=== PATIENT | male | born 1955 | race Caucasian/White ===

== ENCOUNTER 2022-06-04 08:43 | Inpatient (IN) ==
[2022-06-04] MEDS ORDERED: MoRPHine SULFATE 4 MG/ML 1 ML CARP\\VIAL IV STA (09:17)
[2022-06-04] MEDS ORDERED: MoRPHine SULFATE 4 MG/ML 1 ML CARP\\VIAL IV PRN (09:17)
[2022-06-04] MEDS ORDERED: SODIUM CHLORIDE 0.9% 500 ML IV ONE (09:17)
[2022-06-04 09:58] LABS: Basophils # (auto) 0.05 K/uL (0-0.2); Basophils % (auto) 0.7 %; Eosinophils # (auto) 0.13 K/uL (0-0.50); Eosinophils % (auto) 1.8 %; Hematocrit (blood only) 41.9 % (42.0-52.0); Hemoglobin 14.3 g/dl (14.0-18.0); Immature Granulocytes # (auto) 0.01 K/uL (0.01-0.20); Immature Granulocytes % (auto) 0.1 %; Lymphocytes # (auto) 1.78 K/uL (1.2-3.4); Lymphocytes % (auto) 24.3 %; Mean Corpuscular Hemoglobin 31.7 pg (25.0-34.0); Mean Corpuscular Hgb Conc 34.1 g/dL (32.0-36.0); Mean Corpuscular Volume 92.9 fL (80.0-100.0); Mean Platelet Volume 8.8 fL (9.4-12.4); Monocytes # (auto) 0.84 K/uL (0.11-0.59); Monocytes % (auto) 11.5 %; Neutrophils # (auto) 4.52 K/uL (1.40-6.50); Neutrophils % (auto) 61.6 %; Platelet Count 448 K/uL (130-400); RDW Coefficient of Variation 12.7 % (11.5-14.5); RDW Standard Deviation 43.4 fL (36.4-46.3); Red Blood Count 4.51 M/uL (4.70-6.10); White Blood Count 7.33 K/ul (4.8-10.8)
--- NOTE | 2022-06-04 09:58 | Emergency Department Note ---
ED Provider Note History of Present Illness Chief Complaint: Back Injury/Pain Stated Complaint: BAD BACK PAIN Time Seen by Provider: 06/04/22 08:52 66-year-old male who presents to the emergency department for evaluation of intractable lower back pain. The patient reports that he follows with Dr. Sanchez, and is scheduled for surgery tomorrow. The patient reports that he has had his surgery rescheduled multiple times because of insurance issues. He has already had his premedical and cardiology clearance for the procedure. The pat ient reports that he has had multiple outpatient interventions without improvement of his condition, and presents for further pain management and for consultation with Dr. Sanchez. The patient rates his discomfort a 10 out of 10. The patient denies any bladder or bowel incontinence. He also has not had any recent fevers, upper respiratory symptoms, chest pain or shortness of breath. Home Medications Medication Instructions Recorded Confirmed Type acetaminophen 500 mg tablet 1,000 mg PO Q6H PRN Pain 04/29/22 04/29/22 History aspirin 81 mg tablet,delayed 81 mg PO QAM 04/29/22 04/29/22 History release atorvastatin 20 mg tablet 20 mg PO HS 04/29/22 04/29/22 History baclofen 10 mg tablet 10 mg PO TID PRN muscle spasms 04/29/22 04/29/22 History cholecalciferol (vitamin D3) 125 125 mcg PO QAM 04/29/22 04/29/22 History mcg (5,000 unit) tablet (Vitamin D3) duloxetine 60 mg capsule,delayed 60 mg PO QAM 04/29/22 04/29/22 History release folic acid 1 mg tablet 1 mg PO QA 04/29/22 04/29/22 History hydroxychloroquine 200 mg tablet 400 mg PO HS 04/29/22 04/29/22 History meloxicam 7.5 mg tablet 15 mg PO QAM 04/29/22 04/29/22 History methotrexate sodium 2.5 mg tablet 20 mg PO UD 04/29/22 04/29/22 History multivitamin 1 tab PO QAM 04/29/22 04/29/22 History omeprazole 20 mg tablet,delayed 20 mg PO QAM 04/29/22 04/29/22 History release tramadol 50 mg tablet 50 mg PO Q6H PRN Pain 04/29/22 04/29/22 History Allergies Allergy/AdvReac Type Severity Reaction Status Date / Time cat dander Allergy Intermediate "HACKING Verified 04/29/22 09:40 COUGH" grass pollen-perennial rye, Allergy Intermediate "HACKING Verified 04/29/22 09:40 standar COUGH" Past Med/Surg History Medical History Arthritis Reason for duloxetine CAD (coronary artery disease) Nonobstructive per 2010 cath per records GERD (gastroesophageal reflux disease) Well controlled and stable History of chronic cough related to gerd; f/u dr mcarthur, lung specialist [facility] Hx of duodenal ulcer duodenal erosion, years ago, now resolved Hyperlipidemia [facility]; currently following with [facility] Rheumatoid arthritis Follows with rheum - stable Surgical History History of cardiac cath 2009, [facility], no stents History of carpal tunnel surgery of right wrist History of esophagogastroduodenoscopy (EGD) w/dilatation History of surgery Trigger finger release History of total right knee replacement Hx of colonoscopy Hx of nasal septoplasty Hx of toe surgery lt great toe-hallux rigidus sx Hx of umbilical hernia repair Family History Father Stroke Social History Smoking Status: Former smoker Second Hand Exposure: No; Do You Dip or Chew Tobacco: No; Tobacco Cessation Education Requested by Patient: No Hx Alcohol Use: No Hx Substance Use: No Preferred Language: Frisian Communication Ability: Effective Nursing Home Admissions Director Required: No Beliefs That Will Affect Care: None Current Living Situation: Family Current Living Situation Comment: 2 story house Feels Safe at Home: Yes Safety Concerns: Feels Safe At This Time Assistive Devices: Glasses Physical Exam Vital Signs Vital Signs - 24 hr 06/04/22 08:44 06/04/22 10:00 Temperature 36.8 C Temperature Source Temporal Artery Scan Pulse Rate 112 H Pulse Rate [Right Finger] 89 Pulse Rhythm [Right Finger] Regular Pulse Strength [Right Finger] Normal Respiratory Rate 18 18 Respiratory Effort / Characteristics Non-Labored Respiratory Depth Normal Respiratory Pattern Regular Blood Pressure 149/82 H Blood Pressure [Right Arm] 141/90 H Blood Pressure Mean 104 Blood Pressure Mean [Right Arm] 107 Blood Pressure Position [Right Arm] Lying Pulse Oximetry 98 94 Oxygen Delivery Method Room Air Room Air Sepsis Recent Fever Within 48 Hours No Sepsis New/Unexplained Change in Mental Status No Sepsis Action Taken by Nursing No Action Required CONSTITUTIONAL: Healthy and well nourished. Patient appears in moderate discomfort, and is unable to sit for long periods of time. HEENT: No scleral icterus or conjunctival injection/pallor. NECK: Full active range of motion without discomfort. LYMPHATICS: No cervical chain adenopathy. RESPIRATORY: Clear to auscultation bilaterally with no wheezing, crackles, rhonchi or stridor. CARDIOVASCULAR: Regular rate and rhythm with no murmurs, rubs or gallops. GASTROINTESTINAL: Bowel sounds present in all quadrants. Abdomen is soft and nontender to palpation without rigidity, guarding or rebound. MUSCULOSKELETAL: Examination shows generalized tenderness to palpation throughout the lumbar spine. No palpable muscle spasm. INTEGUMENTARY: No rash or other significant dermatologic conditions noted. HEMATOLOGIC: No ecchymosis or petechiae. PSYCHIATRIC: Positive affect. NEUROLOGIC: No focal neurologic deficits noted. Lower extremities are sensory intact. Course Course Patient history and physical exam were performed. Nurses notes were reviewed. I did review prior medical records, including Dr. Sanchez's office note from 04/16/2022, indicating that the patient was a candidate for surgical inter vention since he has essentially failed all possible outpatient interventions and treatment options. I also reviewed the patient's MRI, showing severe degenerative disc disease L3-4 and L4-5. There is also severe foraminal stenosis L3-4 bilaterally. The patient has L3-4 severe left-sided lateral recess stenosis, moderate central canal stenosis and severe central and lateral recess stenosis bilaterally at L4-5. Dr. Sanchez does make mention in his note of L5-S1 severe central stenosis possible arachnoiditis as well as severe lateral recess stenosis, left worse than right. The patient has been dealing with intractable pain, which is now significantly affecting his activities of daily living. In anticipation that Dr. Sanchez would likely admit the patient for operative management, IV access was established, and basic labs were drawn, reviewed and grossly normal. COVID-19 test was negat zackary. The patient was hydrated with normal saline, and administered IV morphine and Zofran for pain. The case was discussed with Dr. Jairo, ED physician, as well as Dr. Sanchez, who will admit the patient for further surgical management. Please see his dictation for further treatment and final disposition. Administered Medications Dexamethasone 8 mg/ Syringe 2 mls @ 1 mls/min IV Q8H AVANI Stop: 06/05/22 02:16 Last Admin: 06/04/22 11:28 Dose: Not Given Documented By: AP Lactated Ringer's (Lr) 1,000 mls @ 75 mls/hr IV .[id number] AVANI Stop: 07/04/22 10:14 Last Admin: 06/04/22 11:28 Dose: 75 mls/hr Documented By: AP Lorazepam (Lorazepam 2 Mg/1 Ml Vial) 0.5 mg IV Q8H PRN PRN Reason: Sedation/Anxiety Stop: 07/04/22 10:00 Last Admin: 06/04/22 12:51 Dose: 0.5 mg Documented By: AP Tramadol HCl (Tramadol Hcl 50 Mg Tablet) 50 - 100 mg PO Q4H PRN PRN Reason: Moderate-Severe pain & Pre PT Stop: 07/04/22 10:00 Last Admin: 06/04/22 12:51 Dose: 100 mg Documented By: AP Discontinued Medications Dexamethasone (Dexamethasone Sod Inj 4 Mg/Ml Vial) Confirm Administered Dose 8 mg .ROUTE .STK-MED ONE Stop: 06/04/22 11:24 Last Admin: 06/04/22 11:28 Dose: 8 mg Documented By: RK Sodium Chloride (Nss) 500 mls @ 999 mls/hr IV .Q31M ONE Stop: 06/04/22 09:47 Last Infusion: 06/04/22 10:34 Dose: 0 mls/hr Documented By: Admin: 06/04/22 09:36 Dose: 999 mls/hr Documented By: RK Morphine Sulfate (Morphine Sulfate 4 Mg/Ml 1 Ml Carp\\Vial) 4 mg IV NOW STA Stop: 06/04/22 09:18 Last Admin: 06/04/22 09:35 Dose: 4 mg Documented By: RK Morphine Sulfate (Morphine Sulfate 4 Mg/Ml 1 Ml Carp\\Vial) 4 mg IV Q1H PRN PRN Reason: Pain Stop: 06/18/22 09:16 Last Admin: 06/04/22 10:39 Dose: 4 mg Documented By: AP Medical Decision Making Medical Records Attestation: I reviewed the patient's medical records. Home Medications was personally reviewed by me Laboratory Data Attestation: I reviewed the patient's lab results. 06/04/22 09:25 06/04/22 09:25 Lab Results 06/04/22 06/04/22 06/04/22 Range/Units 09:25 09:25 09:25 WBC 7.33 (4.8-10.8) K/ul RBC 4.51 L (4.70-6.10) M/uL Hgb 14.3 (14.0-18.0) g/dl Hct 41.9 L (42.0-52.0) % MCV 92.9 (80.0-100.0) fL MCH 31.7 (25.0-34.0) pg MCHC 34.1 (32.0-36.0) g/dL RDW Std Deviation 43.4 (36.4-46.3) fL RDW Coeff of Destiny 12.7 (11.5-14.5) % Plt Count 448 H (130-400) K/uL MPV 8.8 L (9.4-12.4) fL Immature Gran % (Auto) 0.1 % Neut % (Auto) 61.6 % Lymph % (Auto) 24.3 % [place] % (Auto) 11.5 % Eos % (Auto) 1.8 % Baso % (Auto) 0.7 % Neut # (Auto) 4.52 (1.40-6.50) K/uL Lymph # (Auto) 1.78 (1.2-3.4) K/uL [place] # (Auto) 0.84 H (0.11-0.59) K/uL Eos # (Auto) 0.13 (0-0.50) K/uL Baso # (Auto) 0.05 (0-0.2) K/uL Immature Gran # (Auto) 0.01 (0.01-0.20) K/uL PT 10.2 (9.0-12.0) Seconds INR 1.0 (0.9-1.1) APTT 26.5 (21.0-31.0) Seconds PTT Ratio 1.0 Sodium 144 (136-145) mmol/L Potassium 3.7 (3.5-5.1) mmol/L Chloride 108 H (98-107) mmol/L Carbon Dioxide 28 (21-32) mmol/L Anion Gap 8 (3-11) BUN 15 (6-23) mg/dl Creatinine 0.96 (0.6-1.4) mg/dl Est Cr Clr Drug Dosing 81.5 ml/min Est GFR ( Amer) 96.4 ml/min Est GFR (Non-Af Amer) 83.2 ml/min BUN/Creatinine Ratio 15.6 (10-20) Glucose 125 H (70-99(Fasting)) mg/dl Calcium 9.7 (8.5-10.1) mg/dl Total Bilirubin 0.5 (0.2-1.0) mg/dl AST 22 (13-39) U/L ALT 29 (7-52) U/L Alkaline Phosphatase 94 (34-104) U/L Total Protein 7.7 (6.0-8.3) gm/dl Albumin 4.1 (3.4-5.0) gm/dl Globulin 3.6 (2.5-4.0) gm/dl Albumin/Globulin Ratio 1.1 (0.9-2) SARS-CoV-2, RNA, NAAT (NEGATIVE) 06/04/22 Range/Units 09:39 WBC (4.8-10.8) K/ul RBC (4.70-6.10) M/uL Hgb (14.0-18.0) g/dl Hct (42.0-52.0) % MCV (80.0-100.0) fL MCH (25.0-34.0) pg MCHC (32.0-36.0) g/dL RDW Std Deviation (36.4-46.3) fL RDW Coeff of Destiny (11.5-14.5) % Plt Count (130-400) K/uL MPV (9.4-12.4) fL Immature Gran % (Auto) % Neut % (Auto) % Lymph % (Auto) % [place] % (Auto) % Eos % (Auto) % Baso % (Auto) % Neut # (Auto) (1.40-6.50) K/uL Lymph # (Auto) (1.2-3.4) K/uL [place]ima # (Auto) (0.11-0.59) K/uL Eos # (Auto) (0-0.50) K/uL Baso # (Auto) (0-0.2) K/uL Immature Gran # (Auto) (0.01-0.20) K/uL PT (9.0-12.0) Seconds INR (0.9-1.1) APTT (21.0-31.0) Seconds PTT Ratio Sodium (136-145) mmol/L Potassium (3.5-5.1) mmol/L Chloride (98-107) mmol/L Carbon Dioxide (21-32) mmol/L Anion Gap (3-11) BUN (6-23) mg/dl Creatinine (0.6-1.4) mg/dl Est Cr Clr Drug Dosing ml/min Est GFR ( Amer) ml/min Est GFR (Non-Af Amer) ml/min BUN/Creatinine Ratio (10-20) Glucose (70-99(Fasting)) mg/dl Calcium (8.5-10.1) mg/dl Total Bilirubin (0.2-1.0) mg/dl AST (13-39) U/L ALT (7-52) U/L Alkaline Phosphatase (34-104) U/L Total Protein (6.0-8.3) gm/dl Albumin (3.4-5.0) gm/dl Globulin (2.5-4.0) gm/dl Albumin/Globulin Ratio (0.9-2) SARS-CoV-2, RNA, NAAT NEGATIVE (NEGATIVE) MDM Narrative See ED course for further details of today's visit. The patient presents to the emergency department with complaint of intractable lower back pain secondary to significant degenerative disc disease and osteoarthritic changes. Dr. Sanchez has agreed to admit the patient for further pain control and surgical management. Patient has a well-documented history of work-up and treatment for his back pain. I do not suspect other intra-abdominal, urologic or cardiopulmonary referred pain. Impression Intractable low back pain, Rheumatoid arthritis Discharge Plan Visit Data Chief Complaint: Back Injury/Pain Stated Complaint: BAD BACK PAIN ED Provider: [facility] ED Midlevel Provider: Jorge Carreon Discharge Problem: Intractable low back pain, Rheumatoid arthritis Patient Disposition: Admitted As Inpatient Discharge Instructions Interventions: ED Discharge Assessment Last Done: 06/04/22 12:41
[2022-06-04] MEDS ORDERED: PROMETHAZINE HCL 12.5 MG in SODIUM CHLORIDE 0.9% 50 ML IV PRN (10:01)
[2022-06-04] MEDS ORDERED: ONDANSETRON INJ 2 MG/ML 2 ML VIAL IV PRN (10:01)
[2022-06-04] MEDS ORDERED: HYDROmorphone INJ 1 MG/ML SYRINGE IV PRN (10:01)
[2022-06-04] MEDS ORDERED: HYDROmorphone INJ 0.5 MG/0.5 ML SYR IV PRN (10:01)
[2022-06-04] MEDS ORDERED: NALOXONE HCL 0.4 MG/1 ML VIAL/CARP IV PRN (10:01)
[2022-06-04] MEDS ORDERED: ALUMINUM/MAGNESIUM SUSP 30 ML UDC PO PRN (10:01)
[2022-06-04] MEDS ORDERED: ONDANSETRON 4 MG OD TAB PO PRN (10:01)
[2022-06-04] MEDS ORDERED: SOD PHOSPHATE/SOD BIPHOSPHATE ENEMA 132 ML BTL PR PRN (10:01)
[2022-06-04] MEDS ORDERED: traMADol HCL 50 MG TABLET PO PRN (10:01)
[2022-06-04] MEDS ORDERED: METOCLOPRAMIDE HCL INJ 5 MG/ML 2 ML VIAL IV PRN (10:01)
[2022-06-04] MEDS ORDERED: ACETAMINOPHEN 1,000 MG/100 ML VIAL IV PRN (10:01)
[2022-06-04] MEDS ORDERED: ACETAMINOPHEN 500 MG TAB PO PRN (10:01)
[2022-06-04 10:11] LABS: Albumin Globulin Ratio 1.1 (0.9-2); Albumin Level 4.1 gm/dl (3.4-5.0); BUN Creatinine Ratio 15.6 (10-20); Bilirubin,Total 0.5 mg/dl (0.2-1.0); Calcium 9.7 mg/dl (8.5-10.1); Creatinine Clr Calc Pharmacy 81.5 ml/min; Est GFR (African American) 96.4 ml/min; Est GFR (Non-African American) 83.2 ml/min; Globulin 3.6 gm/dl (2.5-4.0); Potassium 3.7 mmol/L (3.5-5.1); Total Protein 7.7 gm/dl (6.0-8.3)
[2022-06-04 10:18] LABS: Partial Thromboplastin Time 26.5 Seconds (21.0-31.0); Prothrombin Time 10.2 Seconds (9.0-12.0)
[2022-06-04] MEDS ORDERED: DEXAMETHASONE SOD INJ 4 MG/ML VIAL ONE (11:23)
[2022-06-04] MEDS: dexAMETHasone 8 MG in SYRINGE 0 ML IV SCH ×2 (11:28→19:40)
[2022-06-04] MEDS: LACTATED RINGER'S 1,000 ML IV SCH (11:28)
[2022-06-04 11:30] LABS: Basophils # (auto) 0.04 K/uL (0-0.2); Basophils % (auto) 0.6 %; Eosinophils # (auto) 0.12 K/uL (0-0.50); Eosinophils % (auto) 1.7 %; Hematocrit (blood only) 38.7 % (42.0-52.0); Hemoglobin 13.4 g/dl (14.0-18.0); Immature Granulocytes # (auto) 0.02 K/uL (0.01-0.20); Immature Granulocytes % (auto) 0.3 %; Lymphocytes # (auto) 2.06 K/uL (1.2-3.4); Lymphocytes % (auto) 28.9 %; Mean Corpuscular Hemoglobin 31.8 pg (25.0-34.0); Mean Corpuscular Hgb Conc 34.6 g/dL (32.0-36.0); Mean Corpuscular Volume 91.7 fL (80.0-100.0); Mean Platelet Volume 8.8 fL (9.4-12.4); Monocytes # (auto) 0.86 K/uL (0.11-0.59); Monocytes % (auto) 12.1 %; Neutrophils # (auto) 4.03 K/uL (1.40-6.50); Neutrophils % (auto) 56.4 %; Platelet Count 419 K/uL (130-400); RDW Coefficient of Variation 12.7 % (11.5-14.5); RDW Standard Deviation 42.4 fL (36.4-46.3); Red Blood Count 4.22 M/uL (4.70-6.10); White Blood Count 7.13 K/ul (4.8-10.8)
--- NOTE | 2022-06-04 11:56 | History & Physical Report ---
Date of Service June 04, 2022 Assessment & Plan (1) Low back pain: Plan: Case has been reviewed with Dr. Sanchez. Dr. Sanchez is admitting the patient for intractable back pain, bilateral lower extremity pain and decline of function at home. For the past 72 hours he has been homebound because of the pain. This is affecting quality of life and function at home. We will make him n.p.o. after midnight in order to proceed with surgical intervention in the form of posterior lumbar decompression instrumented fusion L3-4, L4-5, L5-S1. Risk, benefits, pros cons and alternatives were outlined in detail. Patient is comfortable with above-mentioned planning. Anesthesia and hospitalist team has also been consulted. Dr. Sanchez performed peer to peer with Yennifer last week. Insurance authorization was given. Third green party insurance, [employer] has denied case though. We will proceed with above mentioned plan due to patients decline. History of Present Illness Chief Complaint: Intractable back pain, bilateral lower extremity pain and decline at home Primary Care Provider: Temo Griffin Is a pleasant 66-year-old gentleman well-known to us. He has failed conservative treatment for her lower back which includes physical therapy, pain management, medication therapy. He has had an updated lumbar MRI which we have reviewed 2 weeks ago. This was in our office. He denies bowel or bladder changes. He presents to the ER this morning as he states for the past 72 hours he is homebound/unable to leave his home because of the pain. Pain is so severe affecting his back and bilateral lower extremities he is unable to stand, walk or remain seated for any length of time.It is now greatly affecting his quality of life. Allergies Allergy/AdvReac Type Severity Reaction Status Date / Time cat dander Allergy Intermediate "HACKING Verified 04/29/22 09:40 COUGH" grass pollen-perennial rye, Allergy Intermediate "HACKING Verified 04/29/22 09:40 standar COUGH" Home Medications Medication Instructions Recorded Confirmed Type acetaminophen 500 mg tablet 1,000 mg PO Q6H PRN Pain 04/29/22 04/29/22 History aspirin 81 mg tablet,delayed 81 mg PO QAM 04/29/22 04/29/22 History release atorvastatin 20 mg tablet 20 mg PO HS 04/29/22 04/29/22 History baclofen 10 mg tablet 10 mg PO TID PRN muscle spasms 04/29/22 04/29/22 History cholecalciferol (vitamin D3) 125 125 mcg PO QAM 04/29/22 04/29/22 History mcg (5,000 unit) tablet (Vitamin D3) duloxetine 60 mg capsule,delayed 60 mg PO QAM 04/29/22 04/29/22 History release folic acid 1 mg tablet 1 mg PO QAM 04/29/22 04/29/22 History hydroxychloroquine 200 mg tablet 400 mg PO HS 04/29/22 04/29/22 History meloxicam 7.5 mg tablet 15 mg PO QAM 04/29/22 04/29/22 History methotrexate sodium 2.5 mg tablet 20 mg PO UD 04/29/22 04/29/22 History multivitamin 1 tab PO QAM 04/29/22 04/29/22 History omeprazole 20 mg tablet,delayed 20 mg PO QAM 04/29/22 04/29/22 History release tramadol 50 mg tablet 50 mg PO Q6H PRN Pain 04/29/22 04/29/22 History Past Med/Surg History Medical History Arthritis Reason for duloxetine CAD (coronary artery disease) Nonobstructive per 2010 cath per records GERD (gastroesophageal reflux disease) Well controlled and stable History of chronic cough related to gerd; f/u dr mcarthur, lung specialist biju Hx of duodenal ulcer duodenal erosion, years ago, now resolved Hyperlipidemia Myocardial Infarction 2009, [facility]>had heart cath; currently following with [facility] Rheumatoid arthritis Follows with rheum - stable Surgical History History of cardiac cath 2009, [facility], no stents History of carpal tunnel surgery of right wrist History of esophagogastroduodenoscopy (EGD) w/dilatation History of surgery Trigger finger release History of total right knee replacement Hx of colonoscopy Hx of nasal septoplasty Hx of toe surgery lt great toe-hallux rigidus sx Hx of umbilical hernia repair Family History Father Stroke Social History Smoking Status: Never smoker Second Hand Exposure: Yes (growing up); Hx Alcohol Use: Yes Alcohol type: beer Hx Substance Use: No Preferred Language: Irish Communication Ability: Effective Maritime Engineer Required: No Beliefs That Will Affect Care: None Current Living Situation: Spouse Feels Safe at Home: Yes Assistive Devices: Glasses Review of Systems Review of Systems: All systems reviewed & are unremarkable except as noted in HPI & below Physical Exam Physical Exam: He is seen in the emergency room in conjunction with his Alert and oriented x3 Moderate to severe distress noted he is in a semireclined position He is tender to lesions at the midline lower lumbar spine Negative logrolling bilaterally Negative tension sign bilaterally Breakaway weakness noted to bilateral dorsiflexion Otherwise strength is intact bilateral EHL, quadriceps, hamstrings, hip flexors, hip abductor's and hip adductor's No evidence of ankle clonus Constitutional: average body habitus Eyes: normal visual bruno by confrontation ENMT: external ear and nose normal, oropharynx normal Neck: normal visual inspection Respiratory: normal respiratory effort Cardiovascular: Extremities: normal capillary refill Gastrointestinal (Abdomen): Inspection/Auscultation: abdomen normal to inspection Musculoskeletal: Spine: + lumbar spinal tenderness Extremities: extremities normal to inspection and + abnormal strength Skin: no rashes, warm and dry Neurologic: normal touch/pain/proprioception and moves all extremities Psychiatric: A+Ox3, euthymic affect Apperance: appropriately dressed Eye Contact: good eye contact Results & Data Results & Data ([facility]) Vital Signs (Past 12 Hours) Vital Signs Temp Pulse Pulse Resp BP BP Pulse Ox 06/04/22 10:00 89 18 141/90 H 94 06/04/22 08:44 36.8 C 112 H 18 149/82 H 98 O2 Del Method 06/04/22 10:00 Room Air 06/04/22 08:44 Room Air Code Status & VTE Plan VTE Prophylaxis Plan VTE Prophylaxis will be ordered: Yes
[2022-06-04 12:11] LABS: Albumin Globulin Ratio 1.3 (0.9-2); Albumin Level 4.1 gm/dl (3.4-5.0); BUN Creatinine Ratio 15.7 (10-20); Bilirubin,Total 0.4 mg/dl (0.2-1.0); Calcium 9.8 mg/dl (8.5-10.1); Creatinine Clr Calc Pharmacy 76.7 ml/min; Est GFR (African American) 89.6 ml/min; Est GFR (Non-African American) 77.3 ml/min; Globulin 3.2 gm/dl (2.5-4.0); Potassium 3.9 mmol/L (3.5-5.1); Total Protein 7.3 gm/dl (6.0-8.3)
[2022-06-04] MEDS: LORazepam 2 MG/1 ML VIAL IV PRN ×2 (12:51→22:27)
[2022-06-04] MEDS: oxyCODONE HCL IR 5 MG TAB (IMMEDIATE RELEASE) PO PRN ×2 (15:58→22:27)
--- NOTE | 2022-06-04 19:15 | Hospitalist Consultation ---
Date of Consultation June 04, 2022 Assessment & Plan (1) Intractable low back pain: -Pain control, perioperative abx, IV fluids, and DVT PPX per the primary team -The patient is currently afebrile, hemodynamically stable, and stable on RA -Patient is scheduled for lumbar decompression with L3-S1 fusion tomorrow morning. -The patient was medically cleared by his PCP and cardiology in April, he has had no acute medical changes since and is deemed medically cleared for his procedure for a medicine standpoint -Will order am CBC, BMP and PT/INR -We will continue to follow in the perioperative period (2) Rheumatoid arthritis: -Patient has been holding his methotrexate for the past 2 weeks, continue to hold for now -OK to continue Hydroxychloroquine in the perioperative period (3) CAD (coronary artery disease): -Continue aspirin when the primary team is comfortable with is bleeding risk (4) GERD (gastroesophageal reflux disease): -Continue with daily pantoprazole (5) Hyperlipidemia: -Continue statin Plan The patient was discussed with Dr. Bunch at the time of the consult Supervising Physician Co-Signing Physician Notes I personally saw and examined the patient. I verified all saul points and agree with Juan Francisco Salcido PA-C with the following exceptions and/or additions: 66-year-old male admitted by orthopedic spine team for intractable low back pain with failed conservative treatment. Medicine consulted for preop. He is already had medical clearance for this operation from both cardiology and his primary care provider but reportedly surgery has been delayed due to insurance authorization. He reports no new symptoms of chest pain or shortness of breath since his preoperative clearance. He has not taken most of his medications for the last week as he is not sure what to take due to not knowing when his surgery was going to take place. O/E A&Ox3, HS RRR, no murmurs, Chest CTAB, Abdo SNT A/P Pain/VTE/bowel management per primary orthopedic team. Revised cardiac risk goal 0, 3.9% 30-day risk of , [place] or cardiac arrest. He is medically optimized for surgery at this time. Discussed Plaquenil dosing with Dr. Sanchez and sheldonay to continue this from both a medical and surgical perspective. Agree with holding his methotrexate. Omeprazole to be switched for pantoprazole per hospital formulary. Meloxicam on hold - he has not taken this for the last week, restart when okay from orthopedic spine perspective. Thank for the consult, we will continue to follow the patient perioperatively. History of Present Illness Reason for Consultation: medical management Requesting Physician: Ad Sanchez DO Attending Physician: Dr. Bony Bunch History of Present Illness Mr. Rivas is a 66 year old male with a PMH significant for chronic low back pain, CAD S/P [place] in 2008, Duodenal ulcer, inflammatory arthritis, and hyperlipidemia who presented to the [facility] ED on 06/04/22 due to intractable low back pain. Per chart review, the patient is well-known to Dr. Sanchez and he was originally scheduled to have surgery with Dr. Sanchez 2 weeks ago but the procedure had been delayed due to insurance issues. However, due to his uncontrolled pain he came to the ED today. He was evaluated by Dr. Sanchez who admitted him for pain management and will be taking for the procedure tomorrow morning. At the time of the exam the patient sitting in his bedside chair in no acute distress. When asked, he declines recent saddle anesthesia, loss of bowel or bladder function, and recent falls. He is having the feeling of being unsteady as he has started to develop numbness and tingling down his left lower extremity. He states that his low back pain with left LE radiculopathy has prevented him from completing any of his ADLs. He states that he has not been taking his methotrexate and hydroxychloroquine for the past 2 weeks due to being concerned that it would delay his procedure even further. He denies any recent fevers, chills, chest pain, SOB, abdominal pain, nausea, vomiting, diarrhea, dysuria, hematuria, and recent falls. Per chart review, the patient was medically cleared by his PCP and Cardiology in April when he was originally scheduled to have his procedure 2 weeks ago. He has had no acute changes in his health from the time of his clearances to now. Plase refer to Dr. Bunch's attestation for any changes to the treatment plan Allergies Allergy/AdvReac Type Severity Reaction Status Date / Time cat dander Allergy Intermediate "HACKING Verified 04/29/22 09:40 COUGH" grass pollen-perennial rye, Allergy Intermediate "HACKING Verified 04/29/22 09:40 standar COUGH" Home Medications Medication Instructions Recorded Confirmed Type acetaminophen 500 mg tablet 1,000 mg PO Q6H PRN Pain 04/29/22 06/04/22 History aspirin 81 mg tablet,delayed 81 mg PO QAM 04/29/22 06/04/22 History release atorvastatin 20 mg tablet 20 mg PO HS 04/29/22 06/04/22 History baclofen 10 mg tablet 10 mg PO TID PRN muscle spasms 04/29/22 06/04/22 History cholecalciferol (vitamin D3) 125 125 mcg PO QAM 04/29/22 06/04/22 History mcg (5,000 unit) tablet (Vitamin D3) duloxetine 60 mg capsule,delayed 60 mg PO QAM 04/29/22 06/04/22 History release folic acid 1 mg tablet 1 mg PO QAM 04/29/22 06/04/22 History hydroxychloroquine 200 mg tablet 400 mg PO HS 04/29/22 06/04/22 History meloxicam 7.5 mg tablet 15 mg PO QAM 04/29/22 06/04/22 History methotrexate sodium 2.5 mg tablet 20 mg PO UD 04/29/22 06/04/22 History multivitamin 1 tab PO QAM 04/29/22 06/04/22 History omeprazole 20 mg tablet,delayed 20 mg PO QAM 04/29/22 06/04/22 History release tramadol 50 mg tablet 50 mg PO Q6H PRN Pain 04/29/22 06/04/22 History Patient History Medical History (Updated 06/04/22 @ 19:47 by Juan Francisco Salcido PA-C) Arthritis Reason for duloxetine CAD (coronary artery disease) Nonobstructive per 2010 cath per records GERD (gastroesophageal reflux disease) Well controlled and stable History of chronic cough related to gerd; f/u dr mcarthur, lung specialist biju Hx of duodenal ulcer duodenal erosion, years ago, now resolved Hyperlipidemia Myocardial Infarction 2009, [facility]>had heart cath; currently following with [facility] Rheumatoid arthritis Follows with rheum - stable Surgical History History of cardiac cath 2009, [facility], no stents History of carpal tunnel surgery of right wrist History of esophagogastroduodenoscopy (EGD) w/dilatation History of surgery Trigger finger release History of total right knee replacement Hx of colonoscopy Hx of nasal septoplasty Hx of toe surgery lt great toe-hallux rigidus sx Hx of umbilical hernia repair Family History Father Stroke Social History Smoking Status: Former smoker Second Hand Exposure: No; Do You Dip or Chew Tobacco: No; Tobacco Cessation Education Requested by Patient: No Hx Alcohol Use: No Hx Substance Use: No Preferred Language: Albanian Communication Ability: Effective Microfilm Technician Required: No Beliefs That Will Affect Care: None Current Living Situation: Family Current Living Situation Comment: 2 story house Feels Safe at Home: Yes Safety Concerns: Feels Safe At This Time Assistive Devices: Glasses Review of Systems Review of Systems: Denies current fever, chills, headache, changes in vision, hearing, taste, and smell, chest pain, SOB, cough, abdominal pain, nausea, vomiting, diarrhea, hematemesis, melena, dysuria, hematuria, and recent falls. All systems have been reviewed and are otherwise negative. Physical Exam Physical Exam: Physical Exam: General: In no acute distress, stated age, well-nourished, good hygiene HEENT: Normocephalic, atraumatic, no scleral icterus, pupils around round, symmetrical, and reactive to light, moist mucus membranes, trachea midline, no thyromegaly Chest/Pulm: No respiratory distress, symmetrical chest expansion, clear breath sounds throughout Cardiac: RRR, no murmurs noted Abdomen: Negative for ascites and bruising, normoactive bowel sounds, soft, non-tender to palpation throughout Musculoskeletal: Symmetrical and without signs of acute trauma, upper and lower extremities with full ROM, no atrophy, spasticity, or flaccidity, patient with tenderness to palpation over the lumbar spine and left buttocks Extremities: Radial, dorsalis pedis, and posterior tibial pulses are intact and symmetrical, no edema noted in the BL LE's Skin: Warm, dry, no rashes , lesions, or scars noted Neuro: Alert and oriented to person, place, month, year, and president, no focal defects, CN II-XII tested and intact, patient with symmetrical strength in the BL upper and lower extremities, no tremors noted Psych: No acute distress, calm and cooperative during the exam Results & Data Results & Data ([facility]) Vital Signs (Past 12 Hours) Vital Signs Temp Pulse Pulse Resp BP BP Pulse Ox 06/04/22 15:07 36.9 C 94 H 18 143/86 H 95 06/04/22 12:00 90 18 128/97 90 06/04/22 10:00 89 18 141/90 H 94 06/04/22 08:44 36.8 C 112 H 18 149/82 H 98 O2 Del Method 06/04/22 15:07 Room Air 06/04/22 12:00 Room Air 06/04/22 10:00 Room Air 06/04/22 08:44 Room Air Laboratory Results Abnormal lab results 06/04/22 06/04/22 06/04/22 Range/Units 09:25 09:25 10:53 RBC 4.51 L 4.22 L (4.70-6.10) M/uL Hgb 13.4 L (14.0-18.0) g/dl Hct 41.9 L 38.7 L (42.0-52.0) % Plt Count 448 H 419 H (130-400) K/uL MPV 8.8 L 8.8 L (9.4-12.4) fL [place] # (Auto) 0.84 H 0.86 H (0.11-0.59) K/uL Chloride 108 H (98-107) mmol/L Glucose 125 H (70-99(Fasting)) mg/dl Crossmatch 06/04/22 06/04/22 Range/Units 10:53 10:53 RBC (4.70-6.10) M/uL Hgb (14.0-18.0) g/dl Hct (42.0-52.0) % Plt Count (130-400) K/uL MPV (9.4-12.4) fL [place] # (Auto) (0.11-0.59) K/uL Chloride 109 H (98-107) mmol/L Glucose 107 H (70-99(Fasting)) mg/dl Crossmatch See Detail PG Care Time/CCT Total # of Minutes Spent Total Time Spent with Patient: Total time spent is greater than 50% in coordination of care (as documented) at patient's floor/unit and/or counseling patient: Coding Level of Care Code Established Pt INP/OBS CONSULT LVL 4, 60 MIN Patient Type Established Medical Decision Making High Complexity Diagnoses Intractable low back pain M54.59 Rheumatoid arthritis M06.9 CAD (coronary artery disease) I25.10 GERD (gastroesophageal reflux disease) K21.9 Hyperlipidemia E78.5
[2022-06-04] MEDS ORDERED: hydrOXYzine HCl 25 MG TAB PO PRN (19:34)
[2022-06-04] MEDS: HYDROXYCHLOROQUINE SULFATE 200 MG TAB PO SCH (21:00)
[2022-06-04] MEDS: ATORVASTATIN 20 MG TAB PO SCH (21:00)
[2022-06-04] MEDS ORDERED: DOCUSATE SODIUM/SENNA 50/8.6MG TAB PO SCH (21:00)
[2022-06-05] MEDS: LACTATED RINGER'S 1,000 ML IV SCH ×4 (00:49→22:43)
[2022-06-05] MEDS: dexAMETHasone 8 MG in SYRINGE 0 ML IV SCH (02:36)
[2022-06-05] MEDS ORDERED: ceFAZolin 2000MG 2,000 MG/15 ML SYR IV SCH (06:00)
--- NOTE | 2022-06-05 07:49 | History & Physical Bridge Note ---
Date of Service June 05, 2022 History & Physical Bridge Note I have examined the patient, reviewed the History & Physical and in the interval since the performance of the History & Physical I have noted the following changes of clinical significance: Patient has known severe multilevel spinal stenosis has been previously approved for a multilevel lumbar decompression and fusion however there seems to be conflict within his insurance company and communication issues regarding this fact. Nevertheless he is had multiple delays for surgery, has noted progressive decline, has not been able to ambulate for 72 hours secondary to his pain, has known progressive neuro deficit and I am recommending emergent decompression and fusion to prevent irreversible neurologic damage.
[2022-06-05] MEDS: DULoxetine HCL 60 MG CAP PO SCH (08:11)
[2022-06-05] MEDS: FOLIC ACID 1 MG TAB PO SCH (08:11)
[2022-06-05] MEDS: PANTOprazole 40 MG TAB PO SCH (08:11)
[2022-06-05 08:58] LABS: Mean Corpuscular Hemoglobin 31.7 pg (25.0-34.0); Mean Corpuscular Hgb Conc 34.1 g/dL (32.0-36.0); Mean Platelet Volume 8.6 fL (9.4-12.4); Platelet Count 440 K/uL (130-400); RDW Coefficient of Variation 12.3 % (11.5-14.5); RDW Standard Deviation 41.9 fL (36.4-46.3); Red Blood Count 4.41 M/uL (4.70-6.10); White Blood Count 11.86 K/ul (4.8-10.8)
[2022-06-05 09:00] LABS: BUN Creatinine Ratio 23.3 (10-20); Creatinine Clr Calc Pharmacy 86.9 ml/min; Est GFR (African American) 104.2 ml/min; Est GFR (Non-African American) 89.9 ml/min; Magnesium 2.2 mg/dl (1.7-2.4); Potassium 4.1 mmol/L (3.5-5.1)
[2022-06-05 09:14] LABS: Prothrombin Time 10.6 Seconds (9.0-12.0)
--- NOTE | 2022-06-05 09:21 | Hospitalist Progress Note ---
Date of Service June 05, 2022 Assessment & Plan (1) Intractable low back pain: Plan: - Pain control, perioperative abx, IV fluids, and DVT PPX per the primary team - The patient is currently afebrile, hemodynamically stable, and stable on RA - 93% - Patient is s/p lumbar decompression with L3-S1 fusion today. - The patient was medically cleared by his PCP and cardiology in April, he has had no acute medical changes since and is deemed medically cleared for his procedure for a medicine standpoint - We will continue to follow in the perioperative period (2) Rheumatoid arthritis: Plan: - Patient has been holding his methotrexate for the past 2 weeks, continue to hold for now - Meloxicam also held the past week and can resume when okay from orthopedic spine perspective - OK to continue Hydroxychloroquine in the perioperative period (3) CAD (coronary artery disease): Plan: - Continue aspirin when the primary team is comfortable with is bleeding risk (4) GERD (gastroesophageal reflux disease): Plan: - Continue with daily pantoprazole 40mg daily (5) Hyperlipidemia: Plan: - Continue Atorvastatin 20mg qhs Admission and Anticipated Discharge Date Admission Date: June 04, 2022 Subjective Patient was awake in bed after surgery. He states he is feeling ok. He does have some incisional tenderness but overall is doing well. He was able to eat a sandwich after surgery and has no abdominal pain or nausea. He has not had a BM since 06/03/22 but has a bowel regimen ordered. He denies any CP or SOB. Review of Systems Review of Systems: All ROS negative unless stated above Physical Exam Constitutional: WD/WN, vitals as above Neck: trachea midline, no thyromegaly Respiratory: normal respiratory effort, lungs clear to auscultation Cardiovascular: RRR, no murmur, no edema Gastrointestinal (Abdomen): normal bowel sounds, soft, nontender, no hepatosplenomegaly Psychiatric: A+Ox3, euthymic affect Results & Data Results & Data ([facility]) Vital Signs (Past 12 Hours) Vital Signs Temp Pulse Resp BP Pulse Ox O2 Del Method 06/05/22 07:38 36.6 C 93 H 18 132/81 91 Room Air 06/04/22 22:23 36.6 C 89 18 136/83 94 Room Air Laboratory Results Abnormal lab results 06/04/22 06/04/22 06/04/22 Range/Units 09:25 09:25 10:53 WBC (4.8-10.8) K/ul RBC 4.51 L 4.22 L (4.70-6.10) M/uL Hgb 13.4 L (14.0-18.0) g/dl Hct 41.9 L 38.7 L (42.0-52.0) % Plt Count 448 H 419 H (130-400) K/uL MPV 8.8 L 8.8 L (9.4-12.4) fL [place] # (Auto) 0.84 H 0.86 H (0.11-0.59) K/uL Chloride 108 H (98-107) mmol/L BUN/Creatinine Ratio (10-20) Glucose 125 H (70-99(Fasting)) mg/dl Crossmatch 06/04/22 06/04/22 06/05/22 Range/Units 10:53 10:53 08:18 WBC 11.86 H (4.8-10.8) K/ul RBC 4.41 L (4.70-6.10) M/uL Hgb (14.0-18.0) g/dl Hct 41.0 L (42.0-52.0) % Plt Count 440 H (130-400) K/uL MPV 8.6 L (9.4-12.4) fL [place] # (Auto) (0.11-0.59) K/uL Chloride 109 H (98-107) mmol/L BUN/Creatinine Ratio (10-20) Glucose 107 H (70-99(Fasting)) mg/dl Crossmatch See Detail 06/05/22 Range/Units 08:18 WBC (4.8-10.8) K/ul RBC (4.70-6.10) M/uL Hgb (14.0-18.0) g/dl Hct (42.0-52.0) % Plt Count (130-400) K/uL MPV (9.4-12.4) fL [place] # (Auto) (0.11-0.59) K/uL Chloride (98-107) mmol/L BUN/Creatinine Ratio 23.3 H (10-20) Glucose 128 H (70-99(Fasting)) mg/dl Crossmatch PG Care Time/CCT Total # of Minutes Spent Total Time Spent with Patient: Total time spent is greater than 50% in coordination of care (as documented) at patient's floor/unit and/or counseling patient: Coding Level of Care Code 81797 SUB INP/OBS CARE 05/21MIN Diagnoses Intractable low back pain M54.59 Rheumatoid arthritis M06.9 CAD (coronary artery disease) I25.10 GERD (gastroesophageal reflux disease) K21.9 Hyperlipidemia E78.5
--- NOTE | 2022-06-05 09:26 | Anesthesiology Consultation ---
Date of Service June 05, 2022 Assessment & Plan (1) Encounter for pre-operative examination: Chart Review Chart Review: Acceptable Risk for Surgery History Surgery Operation Date: 06/05/22 09:35 Proposed Procedures p L3-S1 Posterior Decompression and Fusion, Possible Interbody Fusion, Spinal Cord Monitoring - Ad Sanchez DO Height/Weight Height: 5 ft 6 in Weight: 89.6 kg Allergies Allergy/AdvReac Type Severity Reaction Status Date / Time cat dander Allergy Intermediate "HACKING Verified 06/05/22 09:15 COUGH" grass pollen-perennial rye, Allergy Intermediate "HACKING Verified 06/05/22 09:15 standar COUGH" Medications Home Medications Medication Instructions Recorded Confirmed Last Taken acetaminophen 500 mg tablet 1,000 mg PO Q6H PRN Pain 04/29/22 06/04/22 1 Day Ago ~06/03/22 aspirin 81 mg tablet,delayed 81 mg PO QAM 04/29/22 06/04/22 1 Day Ago release ~06/03/22 atorvastatin 20 mg tablet 20 mg PO HS 04/29/22 06/04/22 1 Week Ago ~05/28/22 baclofen 10 mg tablet 10 mg PO TID PRN muscle spasms 04/29/22 06/04/22 1 Day Ago ~06/03/22 cholecalciferol (vitamin D3) 125 125 mcg PO QAM 04/29/22 06/04/22 1 Week Ago mcg (5,000 unit) tablet (Vitamin ~05/28/22 D3) duloxetine 60 mg capsule,delayed 60 mg PO QAM 04/29/22 06/04/22 1 Week Ago release ~05/28/22 folic acid 1 mg tablet 1 mg PO QAM 04/29/22 06/04/22 1 Week Ago ~05/28/22 hydroxychloroquine 200 mg tablet 400 mg PO HS 04/29/22 06/04/22 1 Week Ago ~05/28/22 meloxicam 7.5 mg tablet 15 mg PO QAM 04/29/22 06/04/22 1 Week Ago ~05/28/22 methotrexate sodium 2.5 mg tablet 20 mg PO UD 04/29/22 06/04/22 1 Week Ago ~05/28/22 multivitamin 1 tab PO QAM 04/29/22 06/04/22 1 Day Ago ~06/03/22 omeprazole 20 mg tablet,delayed 20 mg PO QAM 04/29/22 06/04/22 1 Week Ago release ~05/28/22 tramadol 50 mg tablet 50 mg PO Q6H PRN Pain 04/29/22 06/04/22 2 Days Ago ~06/02/22 Active Medications Generic Name Dose Route Start Last Admin Trade Name Freq PRN Reason Stop Dose Admin Atorvastatin Calcium 20 mg 06/04/22 21:00 06/04/22 21:00 Atorvastatin 20 Mg Tab PO 07/04/22 20:59 20 mg HS AVANI Administration Duloxetine HCl 60 mg 06/05/22 09:00 06/05/22 08:11 Duloxetine Hcl 60 Mg Cap PO 07/05/22 08:59 60 mg QAM AVANI Administration Folic Acid 1 mg 06/05/22 09:00 06/05/22 08:11 Folic Acid 1 Mg Tab PO 07/05/22 08:59 1 mg QAM AVANI Administration Hydromorphone HCl 1 mg 06/04/22 10:01 06/04/22 21:00 Hydromorphone Inj 1 Mg/Ml Syringe IV 06/18/22 10:00 1 mg Q3H PRN Administration severe pain (scale 7-10) Hydroxychloroquine Sulfate 400 mg 06/04/22 21:00 06/04/22 21:00 Hydroxychloroquine Sulfate 200 Mg Tab PO 07/04/22 20:59 400 mg HS AVANI Administration Lactated Ringer's 1,000 mls @ 75 mls/hr 06/04/22 10:15 06/05/22 00:49 Lr IV 07/04/22 10:14 75 mls/hr .[id number] AVANI Administration Lorazepam 0.5 mg 06/04/22 10:01 06/04/22 22:27 Lorazepam 2 Mg/1 Ml Vial IV 07/04/22 10:00 0.5 mg Q8H PRN Administration Sedation/Anxiety Oxycodone HCl 5 - 10 mg 06/04/22 10:01 06/04/22 22:27 Oxycodone Hcl Ir 5 Mg Tab (Immediate Release) PO 06/18/22 10:00 10 mg Q4H PRN Administration mod to severe pain Pantoprazole Sodium 40 mg 06/05/22 09:00 06/05/22 08:11 Pantoprazole 40 Mg Tab PO 07/05/22 08:59 40 mg QAM AVANI Administration Senna/Docusate Sodium 2 tab 06/04/22 21:00 06/04/22 21:04 Docusate Sodium/Senna 50/8.6mg Tab PO 07/04/22 20:59 2 tab HS AVANI Administration Tramadol HCl 50 - 100 mg 06/04/22 10:01 06/04/22 12:51 Tramadol Hcl 50 Mg Tablet PO 07/04/22 10:00 100 mg Q4H PRN Administration Moderate-Severe pain & Pre PT NPO Date Last Intake of Fluids: 06/04/22 Time Last Intake of Fluids: 18:00 Date Last Intake of Solids: 06/04/22 Time Last Intake of Solids: 18:00 Past Medical History Medical History Arthritis Reason for duloxetine CAD (coronary artery disease) Nonobstructive per 2010 cath per records GERD (gastroesophageal reflux disease) Well controlled and stable History of chronic cough related to gerd; f/u dr mcarthur, lung specialist biju Hx of duodenal ulcer duodenal erosion, years ago, now resolved Hyperlipidemia Myocardial Infarction 2009, [facility]>had heart cath; currently following with [facility] Rheumatoid arthritis Follows with rheum - stable Past Family History Family History Father Stroke Past Surgical History Surgical History History of cardiac cath 2009, [facility], no stents History of carpal tunnel surgery of right wrist History of esophagogastroduodenoscopy (EGD) w/dilatation History of surgery Trigger finger release History of total right knee replacement Hx of colonoscopy Hx of nasal septoplasty Hx of toe surgery lt great toe-hallux rigidus sx Hx of umbilical hernia repair Social History Smoking Status: Former smoker Do You Dip or Chew Tobacco: No Hx Alcohol Use: No Alcohol type: beer alcohol intake frequency: holidays/special occasions only Hx Substance Use: No substance use type: does not use Physical Exam Vital Signs Last Vital Signs Temp 36.6 C 06/05/22 09:02 Pulse 94 H 06/05/22 09:02 Resp 18 06/05/22 09:02 BP 142/94 H 06/05/22 09:02 Pulse Ox 98 06/05/22 09:02 O2 Del Method 06/05/22 09:02 Testing Laboratory Results 06/05/22 08:18 06/05/22 08:18 PT 10.6 Seconds (9.0-12.0) 06/05/22 08:18 INR 1.0 (0.9-1.1) 06/05/22 08:18 APTT 26.5 Seconds (21.0-31.0) 06/04/22 09:25 Blood Type AB Positive 06/04/22 10:53 Antibody Screen NEGATIVE 06/04/22 10:53 Electrocardiogram Date: 05/02/22 Findings: + NSR @ (93) Stress Test Date: 06/20/19 Type: exercise Findings: + WNL
[2022-06-05] MEDS ORDERED: LABETALOL HCL IV 5 MG/ML 20ML IV PRN (09:31)
[2022-06-05] MEDS ORDERED: ONDANSETRON INJ 2 MG/ML 2 ML VIAL IV PRN ×2 (09:31→14:34)
[2022-06-05] MEDS ORDERED: PROMETHAZINE HCL 12.5 MG in SODIUM CHLORIDE 0.9% 50 ML IV PRN ×2 (09:31→14:34)
[2022-06-05] MEDS ORDERED: ATROPINE SULFATE 0.1 MG/ML 10ML SYR IV PRN (09:31)
[2022-06-05] MEDS ORDERED: FLOSEAL HEMOSTATIC MATRIX 10ML TOP ONE (11:30)
[2022-06-05] MEDS ORDERED: BUPIVACAINE/EPINEPHRINE 0.25% 1:200,000 30 ML VIAL INFIL ONE (11:31)
[2022-06-05] MEDS ORDERED: ceFAZolin SPECIAL PROCEDURE STOCK 1 GM ADDVIAL IV ONE (12:48)
--- NOTE | 2022-06-05 12:58 | Operative Report ---
Post Operative Report Pre & Post Diagnosis Operation Date: 06/05/22 09:35 Pre-Op Diagnosis: Severe spinal stenosis with neurogenic claudication Spondylolisthesis L5-S1 Progressive neuro deficit Post-Op Diagnosis: Same I identified the patient and participated in the time-out.: Yes Procedure Operation Date: 06/05/22 09:35 Actual Procedures #1 lumbar decompression bilaterally facetectomies and foraminotomies L2-L3, L3- L4, L4-5 and L5-S1. #2 posterior spinal fusion L3-S1. #3 placement posterior segmental instrumentation L3-S1. #4 interbody fusion L4-L5 L5-S1. #5 placement of Spira 10 x 26 mm at L4-5 and 13 x 26 mm at L5-S1. #6 placement locally harvested morselized autograft in the posterior gutters. #7 placement of I factor, V toss in the interbody space and posterior lateral gutters. Surgeon Ad Sanchez, Chair Car Driver Celia Almanzar Estimated Blood Loss 500 Findings Consistent with Post-Op Diagnosis Specimens None Indications This is a 66-year-old male who presents with the above-mentioned diagnosis after presenting with steady decline in function both with the ability to ambulate and progressive neuro deficit he is here for emergent decompression fusion to avoid permanent irreversible neurologic deficit Description of Procedure Patient was met with identified informed consent obtained. Patient was then taken to the operative suite underwent intubation placed in a prone position on the Jaime table atop the Sree frame eyes inspected to ensure no external pressure placed upon them. This point the lumbar spine was prepped and draped in normal sterile fashion. Sharp dissection with the assistance of Bovie cautery was performed down to and exposing the lamina and transverse processes of L2 L3-L4-L5 and sacral ala bilaterally. From a caudal cephalad fashion complete laminectomy of L5 L4 L3 and partial laminectomy of L2 was performed including bilateral medial facetectomies and foraminotomies addressing severe spinal stenosis and foraminal disease. He had an obvious for pars defect at L5 bilaterally. After complete decompression pedicle screws were placed in L3-L4-L5 and S1 levels bilaterally with assistance of fluoroscopy and appropriate sized carissa contoured and placed. By way the transforaminal approach on the left complete discectomy of L5-S1 was performed endplates curetted to subcortically bone and a 13 x 26 mm Spira cage with I factor tapped in position. Then proceeded L4-[address] of transforaminal approach on the left complete discectomy performed endplates curetted to subcortical and bone and a 10 x 26 mm spiral cage with I factor tapped in position. The rods were then locked in final position bilaterally. The transverse processes of L3-L4-L5 and S1 were burred to subcortical bleeding bone bilaterally and the I factor combined with V toss and locally harvested morselized autograft placed in the posterior gutters. 15 round SNEHA drain inserted. The incision was then closed with 1 Vicryl the fascia 2-0 Vicryl subcutaneously and 4 Monocryl for final skin closure. Steri-Strip sterile dressings placed. Patient waken taken to PACU in stable condition. Please note spinal cord monitoring was utilized at the procedure no changes noted. Lastly Celia Almanzar was present at the entire surgeon while the patient positioning complex portion of the surgery and final skin closure. I attest to the content of the Intraoperative Record and any orders documented therein. Any exceptions are noted below.
[2022-06-05] MEDS: HYDROmorphone INJ 1 MG/ML SYRINGE IV PRN ×4 (13:53→14:08)
--- NOTE | 2022-06-05 14:11 | Anesthesiology Progress Note ---
Date of Service June 05, 2022 Anesthesia Post Procedure Vital Signs Vital Signs: Temp Pulse Pulse Resp BP BP Pulse Ox 06/05/22 14:00 109 H 18 123/87 94 06/05/22 13:50 109 H 15 128/94 96 06/05/22 13:40 99 H 12 129/77 96 06/05/22 13:30 102 H 15 124/87 93 06/05/22 13:20 105 H 12 126/86 96 06/05/22 13:14 36.0 C L 112 H 12 163/83 H 95 06/05/22 09:02 36.6 C 94 H 18 142/94 H 98 06/05/22 07:38 36.6 C 93 H 18 132/81 91 06/04/22 22:23 36.6 C 89 18 136/83 94 06/04/22 15:07 36.9 C 94 H 18 143/86 H 95 O2 Del Method O2 Flow Rate 06/05/22 14:00 Nasal Cannula 2 06/05/22 13:50 Nasal Cannula 2 06/05/22 13:40 Nasal Cannula 2 06/05/22 13:30 Nasal Cannula 2 06/05/22 13:20 Oxymask 5 06/05/22 13:14 Oxymask 5 06/05/22 09:02 Room Air 06/05/22 07:38 Room Air 06/04/22 22:23 Room Air 06/04/22 15:07 Room Air Pain Intensity Lower Back: Pain Intensity: 7 Transfer of Care Handoff Completed per policy Notes Mental Status: alert / awake / arousable Patient Amnestic to Procedure: Yes Nausea / Vomiting: adequately controlled Pain: adequately controlled Airway Patency, RR, SpO2: stable & adequate BP & HR: stable & adequate Hydration State: stable & adequate Anesthetic Complications: no major complications apparent
[2022-06-05] MEDS ORDERED: hydrOXYzine HCl 25 MG TAB PO PRN (14:34)
[2022-06-05] MEDS ORDERED: LORazepam 0.5 MG TAB PO PRN (14:34)
[2022-06-05] MEDS ORDERED: SOD PHOSPHATE/SOD BIPHOSPHATE ENEMA 132 ML BTL PR PRN (14:34)
[2022-06-05] MEDS ORDERED: NALOXONE HCL 0.4 MG/1 ML VIAL/CARP IV PRN (14:34)
[2022-06-05] MEDS ORDERED: diphenhydrAMINE Capsule 25 MG CAP PO PRN (14:34)
[2022-06-05] MEDS ORDERED: ACETAMINOPHEN 1,000 MG/100 ML VIAL IV PRN (14:34)
[2022-06-05] MEDS ORDERED: ALUMINUM/MAGNESIUM SUSP 30 ML UDC PO PRN (14:34)
[2022-06-05] MEDS ORDERED: DO NOT ADMINISTER FLU VACCINE PRN (14:34)
[2022-06-05] MEDS ORDERED: ONDANSETRON 4 MG OD TAB PO PRN (14:34)
[2022-06-05] MEDS ORDERED: HYDROmorphone INJ 0.5 MG/0.5 ML SYR IV PRN (14:34)
[2022-06-05] MEDS ORDERED: DO NOT ADMINISTER PNEUMOCOCCAL VACCINE PRN (14:34)
[2022-06-05] MEDS ORDERED: bisacodyL 10 MG SUPP PR PRN (14:34)
[2022-06-05] MEDS ORDERED: FAMOTIDINE 20 MG TAB PO PRN (14:34)
[2022-06-05] MEDS ORDERED: ACETAMINOPHEN 500 MG TAB PO PRN (14:34)
[2022-06-05] MEDS ORDERED: LORazepam 2 MG/1 ML VIAL IV PRN (14:34)
[2022-06-05] MEDS ORDERED: MAGNESIUM HYDROXIDE SUSP 30 ML UDC PO PRN (14:34)
[2022-06-05] MEDS ORDERED: METOCLOPRAMIDE HCL INJ 5 MG/ML 2 ML VIAL IV PRN (14:34)
[2022-06-05] MEDS: oxyCODONE HCL IR 5 MG TAB (IMMEDIATE RELEASE) PO PRN ×2 (15:49→20:16)
[2022-06-05] MEDS: ceFAZolin 2000MG 2,000 MG/15 ML SYR IV SCH (20:09)
[2022-06-05] MEDS: HYDROXYCHLOROQUINE SULFATE 200 MG TAB PO SCH (20:11)
[2022-06-05] MEDS: ATORVASTATIN 20 MG TAB PO SCH (20:11)
[2022-06-05] MEDS: DOCUSATE SODIUM/SENNA 50/8.6MG TAB PO SCH (20:16)
[2022-06-06] MEDS: ceFAZolin 2000MG 2,000 MG/15 ML SYR IV SCH (02:48)
[2022-06-06] MEDS: POLYETHYLENE (MIRALAX) 17 GM PACK PO SCH ×3 (05:28→18:06)
[2022-06-06] MEDS: LACTATED RINGER'S 1,000 ML IV SCH (05:36)
[2022-06-06] MEDS: dexAMETHasone 6 MG in SYRINGE 0 ML IV SCH (07:55)
[2022-06-06] MEDS: DULoxetine HCL 60 MG CAP PO SCH (07:55)
[2022-06-06] MEDS: FOLIC ACID 1 MG TAB PO SCH (07:55)
[2022-06-06] MEDS: PANTOprazole 40 MG TAB PO SCH (07:55)
[2022-06-06] MEDS: oxyCODONE HCL IR 5 MG TAB (IMMEDIATE RELEASE) PO PRN ×3 (08:00→18:09)
[2022-06-06 08:50] LABS: BUN Creatinine Ratio 27.3 (10-20); Calcium 8.5 mg/dl (8.5-10.1); Est GFR (African American) 92.9 ml/min; Est GFR (Non-African American) 80.2 ml/min; Potassium 3.9 mmol/L (3.5-5.1)
[2022-06-06 09:33] LABS: Basophils # (auto) 0.01 K/uL (0-0.2); Basophils % (auto) 0.1 %; Hematocrit (blood only) 30.7 % (42.0-52.0); Hemoglobin 10.4 g/dl (14.0-18.0); Immature Granulocytes # (auto) 0.11 K/uL (0.01-0.20); Immature Granulocytes % (auto) 0.6 %; Lymphocytes # (auto) 2.03 K/uL (1.2-3.4); Lymphocytes % (auto) 11.6 %; Mean Corpuscular Hgb Conc 33.9 g/dL (32.0-36.0); Mean Corpuscular Volume 94.5 fL (80.0-100.0); Monocytes # (auto) 2.27 K/uL (0.11-0.59); Neutrophils # (auto) 13.08 K/uL (1.40-6.50); Neutrophils % (auto) 74.7 %; Platelet Count 364 K/uL (130-400); RDW Coefficient of Variation 12.7 % (11.5-14.5); RDW Standard Deviation 43.7 fL (36.4-46.3); Red Blood Count 3.25 M/uL (4.70-6.10)
[2022-06-06] MEDS ORDERED: bisacodyL 10 MG SUPP PR PRN (10:01)
--- NOTE | 2022-06-06 10:50 | Orthopedic Progress Note ---
Date of Service June 06, 2022 Assessment & Plan (1) Neurogenic claudication due to lumbar spinal stenosis: Plan: At this time we will initiate physical therapy monitor his progress for the next few days and hopefully discharge home Thursday or Thursday. Admission and Anticipated Discharge Date Admission Date: June 05, 2022 Subjective Patient's back pain is controlled leg symptoms markedly improved Physical Exam Physical Exam: Patient seen in the bed. He is constricted testing. Peers comfortable. Results & Data ([facility]) Vital Signs (Past 12 Hours) Vital Signs Temp Pulse Resp BP Pulse Ox O2 Del Method 06/06/22 07:13 37.1 C 109 H 16 106/73 94 Room Air 06/06/22 02:45 36.8 C 107 H 16 112/72 94 Room Air 06/05/22 23:00 37 C 98 H 18 115/74 94 Room Air
--- NOTE | 2022-06-06 14:16 | Hospitalist Progress Note ---
Date of Service June 06, 2022 Assessment & Plan (1) Intractable low back pain: Plan: - Pain control and DVT PPX per the primary team - The patient is currently afebrile, hemodynamically stable, and stable on RA - 94% - Patient is tolerating diet and not on IVFs - Patient is s/p lumbar decompression with L3-S1 fusion yesterday - We will continue to follow in the perioperative period (2) Rheumatoid arthritis: Plan: - Patient has been holding his methotrexate for the past 2 weeks, continue to hold for now - Meloxicam also held the past week and can resume when okay from orthopedic spine perspective - OK to continue Hydroxychloroquine in the perioperative period (3) CAD (coronary artery disease): Plan: - Continue aspirin when the primary team is comfortable with is bleeding risk (4) GERD (gastroesophageal reflux disease): Plan: - Continue with daily pantoprazole 40mg daily (5) Hyperlipidemia: Plan: - Continue Atorvastatin 20mg qhs Admission and Anticipated Discharge Date Admission Date: June 05, 2022 Subjective Patient is awake laying in bed in NAD. He is post op day #1 of lumbar spinal surgery for severe spinal stenosis with neurogenic claudication. He states he is feeling well and was up and OOB several times to the bathroom and walking the halls with PT. He is passing flatus. He denies any Nausea, vomiting, abdominal or CP, or dyspnea. Patient is on Dexamethasone 6mg IV daily, WBC elevated likely secondary to this. VSS and afebrile Review of Systems Review of Systems: All ROS negative unless stated above Physical Exam Constitutional: WD/WN, vitals as above Neck: trachea midline, no thyromegaly Respiratory: normal respiratory effort, lungs clear to auscultation Cardiovascular: RRR, no murmur, no edema Gastrointestinal (Abdomen): normal bowel sounds, soft, nontender, no hepatosplenomegaly Psychiatric: A+Ox3, euthymic affect Results & Data Results & Data ([facility]) Vital Signs (Past 12 Hours) Vital Signs Temp Pulse Resp BP Pulse Ox O2 Del Method 06/06/22 07:13 37.1 C 109 H 16 106/73 94 Room Air 06/06/22 02:45 36.8 C 107 H 16 112/72 94 Room Air Laboratory Results Abnormal lab results 06/06/22 06/06/22 Range/Units 07:59 07:59 WBC 17.50 H (4.8-10.8) K/ul RBC 3.25 L (4.70-6.10) M/uL Hgb 10.4 L D (14.0-18.0) g/dl Hct 30.7 L (42.0-52.0) % MPV 9.0 L (9.4-12.4) fL Neut # (Auto) 13.08 H (1.40-6.50) K/uL [place] # (Auto) 2.27 H (0.11-0.59) K/uL BUN 27 H (6-23) mg/dl BUN/Creatinine Ratio 27.3 H (10-20) Glucose 132 H (70-99(Fasting)) mg/dl PG Care Time/CCT Total # of Minutes Spent Total Time Spent with Patient: Total time spent is greater than 50% in coordination of care (as documented) at patient's floor/unit and/or counseling patient: Coding Level of Care Code 04879 SUB INP/OBS CARE 05/21MIN Diagnoses Intractable low back pain M54.59 Rheumatoid arthritis M06.9 CAD (coronary artery disease) I25.10 GERD (gastroesophageal reflux disease) K21.9 Hyperlipidemia E78.5
[2022-06-06] MEDS: ATORVASTATIN 20 MG TAB PO SCH (20:52)
[2022-06-06] MEDS: DOCUSATE SODIUM/SENNA 50/8.6MG TAB PO SCH (20:52)
[2022-06-06] MEDS: traMADol HCL 50 MG TABLET PO PRN (20:52)
[2022-06-06] MEDS: HYDROXYCHLOROQUINE SULFATE 200 MG TAB PO SCH (20:53)
[2022-06-07] MEDS: POLYETHYLENE (MIRALAX) 17 GM PACK PO SCH ×4 (00:32→18:32)
[2022-06-07] MEDS: oxyCODONE HCL IR 5 MG TAB (IMMEDIATE RELEASE) PO PRN ×5 (04:03→20:37)
[2022-06-07] MEDS: PANTOprazole 40 MG TAB PO SCH (08:36)
[2022-06-07] MEDS: FOLIC ACID 1 MG TAB PO SCH (08:36)
[2022-06-07] MEDS: DULoxetine HCL 60 MG CAP PO SCH (08:36)
[2022-06-07] MEDS: dexAMETHasone 6 MG in SYRINGE 0 ML IV SCH (08:37)
--- NOTE | 2022-06-07 08:46 | Hospitalist Progress Note ---
Date of Service June 07, 2022 Assessment & Plan (1) Intractable low back pain: Plan: - Pain control and DVT PPX per the primary team - The patient is currently afebrile, hemodynamically stable, and stable on RA - 94% - Patient is tolerating diet and not on IVFs - Patient is s/p lumbar decompression with L3-S1 fusion 06/05/22 - Patient continues on IV Dexamethasone 6mg daily - We will continue to follow in the perioperative period (2) Rheumatoid arthritis: Plan: - Patient has been holding his methotrexate for the past 2 weeks, continue to hold for now - Meloxicam also held the past week and can resume when okay from orthopedic spine perspective - OK to continue Hydroxychloroquine in the perioperative period - Currently on Dexamethasone 6mg IV daily since surgery 06/06/22 (3) CAD (coronary artery disease): Plan: - Continue aspirin when the primary team is comfortable with is bleeding risk (4) GERD (gastroesophageal reflux disease): Plan: - Continue with daily pantoprazole 40mg daily (5) Hyperlipidemia: Plan: - Continue Atorvastatin 20mg qhs Admission and Anticipated Discharge Date Admission Date: June 05, 2022 Subjective Pateint was up and walking in his room this morning. He is passing flatus and has no abdominal pain, chest pain, SOB, Dyspnea or N/V VSS afebrile. elevated WBC likely secondary to the IV steroids. no signs of infection Review of Systems Review of Systems: All ROS negative unless stated above Physical Exam Constitutional: WD/WN, vitals as above Neck: trachea midline, no thyromegaly Respiratory: normal respiratory effort, lungs clear to auscultation Cardiovascular: RRR, no murmur, no edema Gastrointestinal (Abdomen): normal bowel sounds, soft, nontender, no hepatosplenomegaly Psychiatric: A+Ox3, euthymic affect Results & Data Results & Data ([facility]) Vital Signs (Past 12 Hours) Vital Signs Temp Pulse Resp BP Pulse Ox O2 Del Method 06/07/22 07:11 36.7 C 104 H 18 130/81 94 Room Air 06/06/22 20:53 36.9 C 100 H 16 118/76 95 Room Air Laboratory Results Abnormal lab results 06/07/22 06/07/22 Range/Units 08:47 08:47 WBC 16.25 H (4.8-10.8) K/ul RBC 3.34 L (4.70-6.10) M/uL Hgb 10.6 L (14.0-18.0) g/dl Hct 31.8 L (42.0-52.0) % MPV 8.9 L (9.4-12.4) fL Potassium 3.4 L (3.5-5.1) mmol/L Carbon Dioxide 33 H (21-32) mmol/L BUN/Creatinine Ratio 22.5 H (10-20) PG Care Time/CCT Total # of Minutes Spent Total Time Spent with Patient: Total time spent is greater than 50% in coordination of care (as documented) at patient's floor/unit and/or counseling patient: Coding Level of Care Code 22392 SUB INP/OBS CARE 05/21MIN Diagnoses Intractable low back pain M54.59 Rheumatoid arthritis M06.9 CAD (coronary artery disease) I25.10 GERD (gastroesophageal reflux disease) K21.9 Hyperlipidemia E78.5
[2022-06-07 09:16] LABS: Hematocrit (blood only) 31.8 % (42.0-52.0); Hemoglobin 10.6 g/dl (14.0-18.0); Mean Corpuscular Hemoglobin 31.7 pg (25.0-34.0); Mean Corpuscular Hgb Conc 33.3 g/dL (32.0-36.0); Mean Corpuscular Volume 95.2 fL (80.0-100.0); Mean Platelet Volume 8.9 fL (9.4-12.4); Platelet Count 342 K/uL (130-400); RDW Coefficient of Variation 12.9 % (11.5-14.5); RDW Standard Deviation 44.2 fL (36.4-46.3); Red Blood Count 3.34 M/uL (4.70-6.10); White Blood Count 16.25 K/ul (4.8-10.8)
[2022-06-07 09:38] LABS: BUN Creatinine Ratio 22.5 (10-20); Calcium 8.8 mg/dl (8.5-10.1); Creatinine Clr Calc Pharmacy 76.7 ml/min; Est GFR (African American) 89.6 ml/min; Est GFR (Non-African American) 77.3 ml/min; Potassium 3.4 mmol/L (3.5-5.1)
--- NOTE | 2022-06-07 11:31 | Orthopedic Progress Note ---
Date of Service June 07, 2022 Assessment & Plan (1) Neurogenic claudication due to lumbar spinal stenosis: Plan: At this time we will continue physical therapy anticipate discharge home Thursday. Admission and Anticipated Discharge Date Admission Date: June 05, 2022 Subjective Back pain controlled leg pain markedly improved Physical Exam Physical Exam: Patient is in the chair at the bedside. Is constricted testing. Appears comfortable. Results & Data ([facility]) Vital Signs (Past 12 Hours) Vital Signs Temp Pulse Resp BP Pulse Ox O2 Del Method 06/07/22 07:11 36.7 C 104 H 18 130/81 94 Room Air
[2022-06-07] MEDS: HYDROmorphone INJ 1 MG/ML SYRINGE IV PRN (18:30)
[2022-06-07] MEDS: traMADol HCL 50 MG TABLET PO PRN (19:43)
[2022-06-07] MEDS: ATORVASTATIN 20 MG TAB PO SCH (20:12)
[2022-06-07] MEDS: HYDROXYCHLOROQUINE SULFATE 200 MG TAB PO SCH (20:12)
[2022-06-07] MEDS: DOCUSATE SODIUM/SENNA 50/8.6MG TAB PO SCH (20:12)
[2022-06-08] MEDS: POLYETHYLENE (MIRALAX) 17 GM PACK PO SCH ×5 (01:35→20:15)
[2022-06-08] MEDS: oxyCODONE HCL IR 5 MG TAB (IMMEDIATE RELEASE) PO PRN ×4 (04:52→17:57)
[2022-06-08] MEDS: traMADol HCL 50 MG TABLET PO PRN ×3 (05:32→16:00)
[2022-06-08 07:35] LABS: Hematocrit (blood only) 28.3 % (42.0-52.0); Hemoglobin 9.6 g/dl (14.0-18.0); Mean Corpuscular Hemoglobin 31.8 pg (25.0-34.0); Mean Corpuscular Hgb Conc 33.9 g/dL (32.0-36.0); Mean Corpuscular Volume 93.7 fL (80.0-100.0); Mean Platelet Volume 8.9 fL (9.4-12.4); Platelet Count 289 K/uL (130-400); RDW Coefficient of Variation 12.6 % (11.5-14.5); RDW Standard Deviation 43.1 fL (36.4-46.3); Red Blood Count 3.02 M/uL (4.70-6.10); White Blood Count 16.45 K/ul (4.8-10.8)
[2022-06-08] MEDS: HYDROmorphone INJ 1 MG/ML SYRINGE IV PRN (07:38)
[2022-06-08] MEDS: PANTOprazole 40 MG TAB PO SCH (07:48)
[2022-06-08] MEDS: DULoxetine HCL 60 MG CAP PO SCH (07:48)
[2022-06-08] MEDS: FOLIC ACID 1 MG TAB PO SCH (07:49)
[2022-06-08] MEDS: dexAMETHasone 6 MG in SYRINGE 0 ML IV SCH (07:49)
--- NOTE | 2022-06-08 08:14 | Hospitalist Progress Note ---
Date of Service June 08, 2022 Assessment & Plan (1) Intractable low back pain: Plan: - Pain control and DVT PPX per the primary team - The patient is currently afebrile, hemodynamically stable, and stable on RA - 94% - Patient is tolerating diet and not on IVFs - Patient is s/p lumbar decompression with L3-S1 fusion 06/05/22 - Patient continues on IV Dexamethasone 6mg daily - We will continue to follow in the perioperative period (2) Rheumatoid arthritis: Plan: - Patient has been holding his methotrexate for the past 2 weeks, continue to hold for now - Meloxicam also held the past week and can resume when okay from orthopedic spine perspective - OK to continue Hydroxychloroquine in the perioperative period - Currently on Dexamethasone 6mg IV daily since surgery 06/06/22 (3) CAD (coronary artery disease): Plan: - Continue aspirin when the primary team is comfortable with is bleeding risk (4) GERD (gastroesophageal reflux disease): Plan: - Continue with daily pantoprazole 40mg daily (5) Hyperlipidemia: Plan: - Continue Atorvastatin 20mg qhs (6) ABLA (acute blood loss anemia): Plan: Hgb drop after surgery from 13 to 10.4 currently Hgb 9.6 with normal MCV MCH EBL at surgery on 06/05/22 - 500 SNEHA drain - 575 on 06/06, 190 on 06/07 Patient states he has had a total of 3 bowel movements over the past 2 days and they were normal formed and brown Admission and Anticipated Discharge Date Admission Date: June 05, 2022 Subjective Patient is awake laying in bed and is at bedside. He tells me that he was feeling great and then last evening had 10/10 low back pain, neck pain and leg pain. He was given some IV dilaudid and sxs improved. He states he feels like his muscles are sore and spasmed. He took multiple walks yesterday and also did stairs. He thinks he "over did it" He had several normal bowel movements He denies any chest pain, dyspnea or SOB Review of Systems Review of Systems: All ROS negative unless stated above Physical Exam Constitutional: WD/WN, vitals as above Neck: trachea midline, no thyromegaly Respiratory: normal respiratory effort, lungs clear to auscultation Cardiovascular: RRR, no murmur, no edema Gastrointestinal (Abdomen): normal bowel sounds, soft, nontender, no hepatosplenomegaly Psychiatric: A+Ox3, euthymic affect Results & Data Results & Data ([facility]) Vital Signs (Past 12 Hours) Vital Signs Temp Pulse Resp BP Pulse Ox O2 Del Method 06/08/22 05:06 94 Room Air 06/07/22 21:55 37 C 103 H 18 129/76 93 Room Air Laboratory Results Abnormal lab results 06/04/22 06/08/22 Range/Units 10:53 07:17 WBC 16.45 H (4.8-10.8) K/ul RBC 3.02 L (4.70-6.10) M/uL Hgb 9.6 L (14.0-18.0) g/dl Hct 28.3 L (42.0-52.0) % MPV 8.9 L (9.4-12.4) fL Crossmatch See Detail PG Care Time/CCT Total # of Minutes Spent Total Time Spent with Patient: Total time spent is greater than 50% in coordination of care (as documented) at patient's floor/unit and/or counseling patient: Coding Level of Care Code 05455 SUB INP/OBS CARE 2/35MIN Diagnoses Intractable low back pain M54.59 Rheumatoid arthritis M06.9 CAD (coronary artery disease) I25.10 GERD (gastroesophageal reflux disease) K21.9 Hyperlipidemia E78.5 ABLA (acute blood loss anemia) D62
[2022-06-08] MEDS: CYCLOBENZAPRINE HCL 10 MG TAB PO PRN ×2 (10:53→20:14)
--- NOTE | 2022-06-08 10:57 | Orthopedic Progress Note ---
Date of Service June 08, 2022 Assessment & Plan (1) Neurogenic claudication due to lumbar spinal stenosis: Plan: At this time we will continue physical therapy monitor his progress hopefully discharge home tomorrow Admission and Anticipated Discharge Date Admission Date: June 05, 2022 Subjective Patient struggled with significant back spasms last evening. He states this morning they are markedly improved. He has been up and ambulating already. Physical Exam Physical Exam: On exam is currently in bed. Is good strength testing. Appears comfortable. Results & Data ([facility]) Vital Signs (Past 12 Hours) Vital Signs Pulse Ox O2 Del Method 06/08/22 05:06 94 Room Air
[2022-06-08] MEDS: DOCUSATE SODIUM/SENNA 50/8.6MG TAB PO SCH (20:12)
[2022-06-08] MEDS: ATORVASTATIN 20 MG TAB PO SCH (20:14)
[2022-06-08] MEDS: HYDROXYCHLOROQUINE SULFATE 200 MG TAB PO SCH (20:15)
[2022-06-09] MEDS: oxyCODONE HCL IR 5 MG TAB (IMMEDIATE RELEASE) PO PRN ×2 (02:14→08:04)
[2022-06-09] MEDS: POLYETHYLENE (MIRALAX) 17 GM PACK PO SCH (02:15)
[2022-06-09] MEDS: FOLIC ACID 1 MG TAB PO SCH (07:58)
[2022-06-09] MEDS: PANTOprazole 40 MG TAB PO SCH (07:59)
[2022-06-09] MEDS: DULoxetine HCL 60 MG CAP PO SCH (07:59)
[2022-06-09 10:03] LABS: Hematocrit (blood only) 29.3 % (42.0-52.0); Hemoglobin 9.9 g/dl (14.0-18.0); Mean Corpuscular Hemoglobin 31.5 pg (25.0-34.0); Mean Corpuscular Hgb Conc 33.8 g/dL (32.0-36.0); Mean Corpuscular Volume 93.3 fL (80.0-100.0); Platelet Count 378 K/uL (130-400); RDW Coefficient of Variation 12.8 % (11.5-14.5); RDW Standard Deviation 43.3 fL (36.4-46.3); Red Blood Count 3.14 M/uL (4.70-6.10)
--- NOTE | 2022-06-09 10:14 | Discharge Summary ---
Date of Service June 09, 2022 Admission HPI Per Admitting Provider Is a pleasant 66-year-old gentleman well-known to us. He has failed conservative treatment for her lower back which includes physical therapy, pain management, medication therapy. He has had an updated lumbar MRI which we have reviewed 2 weeks ago. This was in our office. He denies bowel or bladder changes. He presents to the ER this morning as he states for the past 72 hours he is homebound/unable to leave his home because of the pain. Pain is so severe affecting his back and bilateral lower extremities he is unable to stand, walk or remain seated for any length of time.It is now greatly affecting his quality of life. Principal Diagnosis Lumbar spinal stenosis with progressive neurologic decline Discharge Data Allergies Allergy/AdvReac Type Severity Reaction Status Date / Time cat dander Allergy Intermediate "HACKING Verified 06/05/22 09:15 COUGH" grass pollen-perennial rye, Allergy Intermediate "HACKING Verified 06/05/22 09:15 standar COUGH" Consultations 06/04/22 09:18 ED Decision to Admit Stat 06/04/22 10:01 Consult Anesthesiology Routine 06/04/22 10:06 Consult Internal Medicine Routine Procedures Performed Operation Date: 06/05/22 09:35 Actual Procedures p L3-S1 Posterior Decompression and Fusion, with Interbody Fusion, Spinal Cord Monitoring(Bilateral) - Ad Sanchez DO Hospital Course (1) Neurogenic claudication due to lumbar spinal stenosis: Patient was admitted with marked decline in neurologic status and inability to ambulate underwent emergent decompression fusion tolerated this well was taken to orthopedic for postop labor postop day 1 is up and ambulating progressed through postop day #2 and 3. Bowels working well. Good strength testing. Socially discharged home. Discharge orders instructions found in chart for further review. Total Time Total Time Spent Total Time Spent (In Minutes): 20 minutes Discharge Plan Discharge Items Patient Disposition: Home - Self-Care Reason For Visit: BAD BACK PAIN Discharge Diagnosis: Lumbar spinal stenosis with neurogenic claudication Activity: As commented below Non-emergency contact: Primary Care Provider Call non-emergency contact if: you have any medication questions Follow-up/Referrals: Temo Griffin [Primary Care Provider] - 06/19/22 11:15 am ([facility]) Diet: Regular Addtl Attending Provider Instructions: ACTIVITY RECOMMENDATIONS: SELF CARE INSTRUCTIONS AFTER THORACIC/LUMBAR FUSIONS 1. You may walk to your tolerance. It is good exercise for your legs and back. Expect some back and intermittent leg aches and pains. 2. You may perform "counter-top" level activities (make a sandwich, huyen with a project, etc.). 3. No bending or lifting of more than 10 pounds or back twisting of any nature (roll like a log when turning in bed). 4. You may ride in a car for 20-30 minutes at a time. No driving until after your first visit with your doctor. 5. Frequent changes of position and restricting sitting to 30 minutes at a time will help limit the amount of back spasms and stiffness you may experience. 6. You may discontinue the use of ambulatory aids (cane, crutches, etc.) once your strength and confidence allow. 7. You may silk screen painter the shower and let water strike your incision when you arrive home at least once daily. Do not take a tub bath, sit in a hot tub or go into a swimming pool until after your first recheck in the office. SPECIAL CARE INSTRUCTIONS: VERY IMPORTANT TO READ AND REVIEW A. Your surgical incision has been closed with a cosmetic suture under the skin that will dissolve in about 6 weeks. In 14 days, you can use a pair of clean scissors and cut the suture that is left outside of the skin at t he ends of your incision. 1. The small skin tapes can be removed 7 days after surgery if they have not fallen off by that point. 2. You may keep the wound open to air as much as possible to promote healing after post-op day number 5 unless told otherwise by your doctor. 3. If you think the wound looks like it is becoming infected (redness or worsening drainage) and/or you are experiencing fever, chill or worsening back pain and muscle spasms, contact the office so that we may evaluate you as soon as possible. B. Complications are uncommon, but please contact us if you have any signs or symptoms of: 1. wound infection (fever higher than 102.5 degrees F, redness, separation of wound, drainage, or increasing pain from the incision) 2. blood clots in legs (pain, swelling, redness and warmth in legs) 3. urinary tract infection (fever higher than 102.5 degrees F, burning upon urination or increased frequency of urination) 4. nerve problems (inability to walk on your toes or heels, numbness, loss of bowel or bladder control) 5. any other symptoms that concern you C. Please call the office at if you have any concerns or questions about your operation or recovery. D. No smoking! Smoking drastically decreases the chance of a solid fusion. E. Do not take any anti-inflammatory medications (Indocin, Advil, Motrin, Aspirin, Naprosyn, etc.) as these may inhibit the chance of a solid fusion. Tylenol is okay to take for pain. MANAGING PAIN AFTER SPINAL SURGERY 1. Narcotic medication is intended for short-term use and will be provided for surgical pain. Surgical pain usually lasts for a period of 4-6 weeks. Narcotic medication includes Percocet, Vicodin, Darvocet, Tylenol #3 or Lortab. 2. Longer-term pain is more appropriately treated with non-narcotic medication such as Tylenol ES. 3. Muscle spasm is not appropriately treated with narcotics. Muscle relaxers such as Soma, Flexeril or Skelaxin can be used along with Tylenol ES. 4. Remember that we all live with some "aches and pains". This is not unusual or uncommon after an injury or as we get older. a. Back pain is expected and may include muscle spasms for 4 to 6 weeks after surgery. The pain should gradually improve. If the pain worsens for no apparent reason, please contact the office. b. Intermittent leg pain may also be experienced and should not be concerned about unless it worsens for no apparent reason. If so, please contact the office. 5. We will provide appropriate medication within the normal guidelines of their prescribed use. We will also be very cautious and aware of potential abuse and extended duration of patients' medication needs. a. Pain medications are for your comfort and to assist with sleep and rest so that the tissue can heal. They are not provided in order to return to normal activity and should not be used through the day. To do so or worsening pain at night can result from ongoing tissue damage and development of tolerance to the prescribed medicine. 6. Please allow 2-3 days to process refills. Prescriptions will not be mailed but must be picked up at the office. FOLLOW UP VISIT: Keep your scheduled follow-up appointment. Any questions, please call the office at . Pending Studies at Discharge: No Stand-Alone Forms: [facility], Smoking Cessation Medications and DC Order Prescriptions: New tramadol 50 mg tablet 50 mg PO Q6H PRN (Reason: pain, moderate) Qty: 30 0RF oxycodone 5 mg tablet 5 mg PO Q6H PRN (Reason: pain, severe) Qty: 30 0RF cyclobenzaprine 10 mg Tablet 10 mg PO Q8 PRN (Reason: muscle spasm) Qty: 20 0RF Continued multivitamin Tablet 1 tab PO QAM atorvastatin 20 mg Tablet 20 mg PO HS aspirin 81 mg Tablet,Delayed Release (Dr/Ec) 81 mg PO QAM tramadol 50 mg Tablet 50 mg PO Q6H PRN (Reason: Pain) acetaminophen 500 mg Tablet 1,000 mg PO Q6H PRN (Reason: Pain) meloxicam 7.5 mg Tablet 15 mg PO QAM methotrexate sodium 2.5 mg Tablet 20 mg PO UD Rx Instructions: once on tuesdays. baclofen 10 mg Tablet 10 mg PO TID PRN (Reason: muscle spasms) folic acid 1 mg Tablet 1 mg PO QAM hydroxychloroquine 200 mg Tablet 400 mg PO HS duloxetine 60 mg Capsule,Delayed Release(Dr/Ec) 60 mg PO QAM omeprazole 20 mg Tablet,Delayed Release (Dr/Ec) 20 mg PO QAM cholecalciferol (vitamin D3) [Vitamin D3] 125 mcg (5,000 unit) Tablet 125 mcg PO QAM Discharge Orders: Discharge Order (Routine); Ordered 06/09/22 Ordered By: Ad Sanchez Admission Data Admit Date/Time: 06/05/22 13:04 Attending Provider: Ad Sanchez Admit Provider: Ad Sanchez Primary Care Provider: Temo Griffin Other Providers: Ad Sanchez ; Roberta Leonard ; Maria A Newman ; Emily Brito ; Chani Chowdary ; Charo Gomez ; Leighton Rao ; Khanh Elam ; Javi Martinez ; Marquis Muller ; Katelin Muller ; Chepe James ; Bailey Butler ; Kuldeep Musa ; Guerrero Bah ; Alvin Kilpatrick ; Tejinder Sandoval ; Dulce Barksdale E ; Layo Gilman A ; Terri Forbes ; Mini Gilman ; Jan Corrales ; Alivia Rosenbaum ; Reginaldo Morrison ; Tessie Vidal ; Enedelia Diaz ; Kalpesh Hamilton ; Clara Faustin A ; Melisa Phillips A ; Paola Perkins ; Rosanne Lawler ; Adama Lawler V ; Donny Melo ; Maria A Marcus ; Javier Monteiro ; Kaykay C[place]ton ; Adama Hathaway ; Maco Barksdale ; Geoffrey Andrade ; Linda Lee ; Traci Zhang ; Adama Briggs ; Luis Eduardo Salazar ; Naomie Leon ; Rao Hilario ; Vicente Sandoval ; Andreia Pedro ; Brenden Casanova ; Demetris Waldron ; Juan Manuel Carmona ; Brenden Reno ; Leighton Kyle Jr ; Cherry Callahan ; Yaneth Greenfield A. ; Luciana Beck. ; Kalpesh Valera ; Chani Arriola ; Marquis Hopkins. ; Watson Hickey I. ; Ailin Reese S. ; Yaneth Gilmore A. ; Carly Ware S. ; Jori Valenzuela. ; Tai Wong ; Guanako Osorio ; Mini Truong ; Bony Payne ; Erasto Morales ; Clifton Simmons. ; Karsten Alonzo ; Roman Zamora. ; Shaila Sesay ; Alivia Jones ; Larry Chow ; Leonides Foss ; Clara Correia ; Alexis Salazar ; Christiano Husain. ; Abbey Jauregui ; Chani Dial ; Reyna Ruiz ; Juan Francisco Salcido ; Adria Doran ; Leann Gonzalez ; Mini Mcintosh ; Adrienne Mustafa ; Brenden Mccoy ; oBny Bunch ; Brenda Chang ; Clayton Pompa ; Lico Goodwin ; Karey Louis ; José Luis Otto ; Bailey Tobin ; Greg Cotton ; Sarah Danielle ; Mega March ; Ced Ascencio SCristopher ; Aayh Cano ; Silvano Hearn ; Randa Salcedo
--- NOTE | 2022-06-09 11:13 | Hospitalist Progress Note ---
Date of Service June 09, 2022 Assessment & Plan Admission and Anticipated Discharge Date Admission Date: June 05, 2022 Subjective Patient was already discharged to home before I was able to see today. Results & Data Results & Data ([facility]) Vital Signs (Past 12 Hours) Vital Signs Temp Pulse Resp BP BP Pulse Ox O2 Del Method 06/09/22 09:46 36.9 C 104 H 20 151/94 H 130/76 95 06/09/22 08:47 36.9 C 104 H 06/09/22 07:44 36.4 C L 114 H 20 151/94 H 95 Room Air PG Care Time/CCT Total # of Minutes Spent Total Time Spent with Patient: Total time spent is greater than 50% in coordination of care (as documented) at patient's floor/unit and/or counseling patient: Coding Level of Care Code None Comment Patient was discharged to home before was able to see him
== END 2022-06-09 11:36 | disposition home or self-care (01) | DRG 454 ==
LOC: ED 08:43 → EDINP 08:43 → SUATTDRO 10:01 → 3W 12:41 → SUATTDRO 06-05 13:04
DX: I25.2 Old myocardial infarction; Z91.048 Other nonmedicinal substance allergy status; M06.9 Rheumatoid arthritis, unspecified; Z79.1 Long term (current) use of non-steroidal anti-inflammatories (NSAID); M54.59 Other low back pain; Z79.899 Other long term (current) drug therapy; Z79.82 Long term (current) use of aspirin; Z79.631 Long term (current) use of antimetabolite agent; K21.9 Gastro-esophageal reflux disease without esophagitis; R29.818 Other symptoms and signs involving the nervous system; Z87.891 Personal history of nicotine dependence; D62 Acute posthemorrhagic anemia; M43.17 Spondylolisthesis, lumbosacral region; E78.5 Hyperlipidemia, unspecified; I25.10 Atherosclerotic heart disease of native coronary artery without angina pectoris